=== PATIENT | female | born 1960 | race Caucasian/White ===

== ENCOUNTER 2024-08-30 10:08 | Outpatient (CLI) | payer MEDICARE, SELFPAY ==
--- NOTE | ~2024-08-30 | XR_ITS ---
XR chest 2V Ordering provider: Sis Malloy APRN History: 64 years Female with . chronic off and on sore throat, chest pressure x 1 year . Comparison: None. FINDINGS: MEDIASTINUM: The cardiac silhouette is not enlarged. LUNGS: No infiltrates, effusions or pneumothorax. OTHER: No free air under the diaphragm. IMPRESSION: No acute cardiopulmonary pathology. Reviewed, dictated and finalized at location A. [employer]/CONTROLS MANAGER
== END 2024-08-30 10:09 | disposition home or self-care (01) ==
PROVIDERS: PCP Nurse Practitioner Adult Health; Visit Provider Nurse Practitioner Adult Health
DX: J02.9 Acute pharyngitis, unspecified (principal); Z80.1 Family history of malignant neoplasm of trachea, bronchus and lung
CPT/HCPCS: 71046

== ENCOUNTER 2024-12-15 08:00 | Outpatient (CLI) | payer MEDICARE, SELFPAY ==
--- NOTE | ~2024-12-15 | US_ITS ---
EXAMINATION: US thyroid DATE: 12/15/2024 08:18 INDICATION: Nontoxic single thyroid nodule follow-up evaluation TECHNIQUE: Multiple ultrasound images of the thyroid were obtained. COMPARISON: None. FINDINGS: The right thyroid lobe measures 5.9 x 1.5 x 1.6 cm. Within the upper pole of the right lobe of the thyroid gland is a 3.9 x 2.2 x 2.6 mm nodule: Composition -cystic Echogenicity -anechoic Shape - wider than tall Margin - smooth Echogenic foci - none. = TR 1: Benign, no FNA The left thyroid lobe measures 5.6 x 1.3 x 1.4 cm. The isthmus measures 0.2cm in anterior to posterior dimension. Within the isthmus, to the right of midline is a 5.3 x 2.4 x 4.4 mm nodule: Composition -spongiform Echogenicity -hypoechoic (2) Shape - wider than tall Margin - smooth Echogenic foci - none. = TR 2: Not suspicious, no FNA There is otherwise normal echotexture and echogenicity throughout the remainder of the thyroid gland. No additional discrete nodules identified. Normal vascular flow is present. IMPRESSION: TR 1 nodule in the right lobe of the thyroid gland measuring 3.9 mm in greatest dimension (benign). TR 2 nodule within the isthmus, to the right of midline measuring 5.3 mm in greatest dimension (not s uspicious). No FNA is needed. Follow-up may be performed. Reviewed, dictated and finalized at location A. IMPRESSION: TR 1 nodule in the right lobe of the thyroid gland measuring 3.9 mm in greatest dimension (benign). TR 2 nodule within the isthmus, to the right of midline measuring 5.3 mm in gre atest dimension (not suspicious). No FNA is needed. Follow-up may be performed.
== END 2024-12-15 08:01 | disposition home or self-care (01) ==
PROVIDERS: PCP Nurse Practitioner Adult Health; Visit Provider Nurse Practitioner Adult Health
DX: E04.1 Nontoxic single thyroid nodule (principal)
CPT/HCPCS: 76536